=== PATIENT | female | born 1960 | race Caucasian/White ===

== ENCOUNTER 2016-10-28 11:52 | Emergency (ER) | payer OTHER ==
[~2016-10-28] VITALS: Ht 170.2 cm; Wt 71.4 kg
[~2016-10-28 11:52] MED LIST: AMLODIPINE BESY10 MG PO; ASPIR 8181 M1 PO; BISOPROLOL FUMAR5 MG PO; BISOPROLOL-HCT1 EACH PO; FIBER TABS625 MG PO; FIBERCON625 MG PO; FISH OIL 1,0001 EA10 PO; FISH OIL 1,0001 EAC7 PO; GLUCOSA-CHOND-1 EACH PO; LISINOPRIL20 MG PO; LOVASTATIN20 MG PO; MULTI VITAMIN1 EACH PO; MULTIVITAMIN1 EAC2 PO; OSTEO BI-FLEX1 EAC1 PO; PRADAXA150 MG PO; VITAMIN D-32000 UNI1 PO; VITAMIN D31000 UNI2 PO; ZIAC
[2016-10-28] MEDS ORDERED: ULTRAM50 MG PO (12:47)
[2016-10-28] MEDS ORDERED: KEFLEX500 MG PO (12:47)
[2016-10-28] MEDS ORDERED: BACTRIM,SEPT1 TABLET PO (12:47)
[2016-10-28 13:29] VITALS: BP 162/88
== END 2016-10-28 13:29 | disposition home or self-care (01) ==
LOC: EME 11:52
PROC: 0H94XZZ Drainage of Neck Skin, External Approach (ICD-10-PCS; principal; 2016-10-28)
DX: L02.11 Cutaneous abscess of neck (principal); F17.200 Nicotine dependence, unspecified, uncomplicated
CPT/HCPCS: 99281; 99284